=== PATIENT | female | born 1960 | race Caucasian/White ===

== ENCOUNTER 2016-04-05 08:00 | Inpatient (IN) ==
[2016-04-05] MEDS ORDERED: LORazepam 1 MG TABLET PO PRN (12:19)
[2016-04-05] MEDS ORDERED: clonazePAM 0.5 MG TABLET PO PRN (12:20)
[2016-04-05] MEDS: PREGABALIN 75 MG CAPSULE PO SCH ×3 (12:49→20:31)
[2016-04-05 13:08] LABS: Basophils % 0.5 % (0.0-0.8); Eosinophils # 0.1 10*3/uL (0.0-0.87); Eosinophils % 1.2 % (0.00-10.9); Hematocrit 38.8 VOL% (35.7-47.0); Hemoglobin 12.1 GM/DL (12.0-16.0); Immature Granulocytes % 0.3 %; Immature Granulocytes Absolute 0.02 #; Lymphocytes # 2.4 10*3/uL (1.4-4.0); Lymphocytes % 31.6 % (21.3-54.2); Mean Corpuscular HGB Conc 31.2 GM/DL (32-36); Mean Corpuscular Hemoglobin 28 PG (27-34); Mean Corpuscular Volume 88.8 FL (87-102); Mean Platelet Volume 11.7 FL (9.6-12.0); Monocytes # 0.7 10*3/uL (0.11-0.8); Monocytes % 8.8 % (1.7-12.7); Neutrophils # 4.4 10*3/uL (1.4-7.4); Neutrophils % 57.6 % (38.7-73.9); Platelet Count 306 10*3/uL (130-400); Red Blood Count 4.37 10*6/uL (3.8-5.5); Red Cell Distribution Width 13.5 % (9.3-17.3); White Blood Count 7.6 10*3/uL (4.5-13.71)
[2016-04-05 13:46] LABS: Alanine Aminotransferase 60 U/L (13-56); Albumin 3.7 G/DL (3.4-5.0); Alkaline Phosphatase 60 U/L (45-117); Aspartate Amino Transferase 60 U/L (0-37); Bilirubin,Total < 0.39 MG/DL (0.2-1.0); Blood Urea Nitrogen 13 MG/DL (7-18); Calcium 8.5 MG/DL (8.5-10.1); Glucose 100 MG/DL (74-106); Osmolality,Calculated 289.6 MOS/KG (273-304); Potassium 4.2 MMOL/L (3.5-5.1); Sodium 146 MMOL/L (136-145); Total Protein 6.9 G/DL (6.4-8.3)
[2016-04-05] MEDS ORDERED: LORazepam 2 MG/1 ML VIAL IV ONE (14:00)
[2016-04-05 14:07] LABS: Apearance,Urine CLOUDY (Clear); Bacteria,Urine Occasional /HPF (Few); Bilirubin,Urine Negative (Negative); Blood, Urine Negative (Negative); Calcium Oxalate Crystals,Urine Few /HPF (Few); Glucose,Urine (UA) Negative (Negative); Ketones,Urine Negative (Negative); Mucus,Urine Many /LPF (Occasional); Nitrite,Urine Negative (Negative); Protein,Urine Negative; RBC,Urine 2 /HPF (0-4); Squamous Epithelial Cell,Urine Few /HPF (0-10); Urine Color Yellow (Yellow); Urine Specific Gravity 1.029 (1.001-1.035); Urine Urobilinogen < 2.0 EU/DL (0.2-1.0); WBC,Urine 2 /HPF (0-6)
--- NOTE | 2016-04-05 16:56 | Magnetic Resonance Report ---
Referring physician: Vanesa Kim Exam: MRI brain with and without contrast Date: April 05, 2016 Comparison: MRI brain September 28, 2015 and September 26, 2015, MRI brain July 19, 2009 Reason: Followup brain cancer The patient is an inpatient who was admitted on April 05, 2016. Technique: MRI of the brain was performed with and without the use of 15 cc of IV Dotarem contrast. Obtained precontrast images include sagittal T1, axial diffusion-weighted, axial FLAIR, axial T2, coronal T2, axial gradient and axial T1 sequences. Postcontrast sequences include axial and coronal T1 sequences. A 1.5 Archana magnet was used Findings: There is again encephalomalacia at the left parasagittal frontal lobe. This is likely related to surgical resection of the patient's reported brain tumor. FLAIR hyperintensity is seen along the margins of the encephalomalacia and has been stable since since at least July 19, 2009. In addition, no suspicious enhancement is seen in this region. No hydrocephalus or midline shift is present. There is no evidence of recent intracranial hemorrhage, abnormal mass effect or an acute infarction. Major vascular flow voids are visualized. There is artifact at the anterior aspects of both orbits, but they are unremarkable as visualized. The sella and brainstem are also unremarkable. The paranasal sinuses and mastoid air cells are clear. Impression: There is again encephalomalacia at the left parasagittal frontal lobe. Similar findings are seen on previous studies dating back to least July 19, 2009, and this is likely related to surgical resection of the patient's reported brain tumor. No suspicious enhancement is seen in this region, and there is no convincing evidence of residual/recurrent disease. However, continued followup is recommended since recurrence may have a subtle appearance. PROCEDURE INTERPRETED AT [facility] DEPARTMENT OF RADIOLOGY Final Report Signed by: Dr. Cary Guo
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
[2016-04-05] MEDS: MAGNESIUM OXIDE 400 MG TABLET PO SCH (20:31)
[2016-04-05] MEDS: PANTOPRAZOLE 40 MG TABLET PO SCH (20:31)
[2016-04-05] MEDS: METOPROLOL SUCCINATE XL 50 MG TABLET PO SCH (20:31)
[2016-04-05] MEDS: ASPIRIN EC 81 MG TABLET PO SCH (20:31)
[2016-04-05] MEDS: MELOXICAM 7.5 MG TABLET PO SCH (20:31)
[2016-04-05] MEDS: ESTRADIOL 1 MG TABLET PO SCH (20:32)
[2016-04-05] MEDS: CHOLECALCIFEROL 1,000 UNIT TABLET PO SCH (20:32)
[2016-04-05] MEDS ORDERED: FENOFIBRATE 145 MG TABLET PO SCH (21:00)
[2016-04-05] MEDS ORDERED: NARATRIPTAN HCL 1 MG PO PRN (23:31)
[2016-04-05] MEDS ORDERED: METOPROLOL SUCCINATE XL 25 MG TABLET PO SCH (23:45)
[2016-04-06 08:06] LABS: Basophils % 0.6 % (0.0-0.8); Eosinophils # 0.1 10*3/uL (0.0-0.87); Hematocrit 37.1 VOL% (35.7-47.0); Hemoglobin 11.9 GM/DL (12.0-16.0); Immature Granulocytes % 0.1 %; Immature Granulocytes Absolute 0.01 #; Lymphocytes # 3.4 10*3/uL (1.4-4.0); Lymphocytes % 50.1 % (21.3-54.2); Mean Corpuscular HGB Conc 32.1 GM/DL (32-36); Mean Corpuscular Hemoglobin 28 PG (27-34); Mean Corpuscular Volume 88.1 FL (87-102); Mean Platelet Volume 11.3 FL (9.6-12.0); Monocytes # 0.6 10*3/uL (0.11-0.8); Monocytes % 8.5 % (1.7-12.7); Neutrophils # 2.7 10*3/uL (1.4-7.4); Neutrophils % 39.7 % (38.7-73.9); Platelet Count 255 10*3/uL (130-400); Red Blood Count 4.21 10*6/uL (3.8-5.5); Red Cell Distribution Width 13.3 % (9.3-17.3); White Blood Count 6.7 10*3/uL (4.5-13.71)
[2016-04-06 08:32] LABS: Albumin 3.3 G/DL (3.4-5.0); Bilirubin,Total 1.1 MG/DL (0.2-1.0); Calcium 8.3 MG/DL (8.5-10.1); Magnesium 2.2 MG/DL (1.8-2.4); Osmolality,Calculated 287.6 MOS/KG (273-304); Potassium 4.3 MMOL/L (3.5-5.1); Total Protein 6.1 G/DL (6.4-8.3)
[2016-04-06] MEDS: PREGABALIN 75 MG CAPSULE PO SCH ×4 (08:49→21:17)
[2016-04-06] MEDS ORDERED: ASPIRIN EC 81 MG TABLET PO SCH (09:00)
[2016-04-06] MEDS ORDERED: MELOXICAM 7.5 MG TABLET PO SCH (09:00)
[2016-04-06] MEDS ORDERED: ONDANSETRON 4 MG/2 ML VIAL ONE (13:11)
[2016-04-06] MEDS ORDERED: ONDANSETRON 4 MG/2 ML VIAL IV PRN (13:24)
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
[2016-04-06] MEDS: MELOXICAM 7.5 MG TABLET PO SCH (21:16)
[2016-04-06] MEDS: CHOLECALCIFEROL 1,000 UNIT TABLET PO SCH (21:16)
[2016-04-06] MEDS: ESTRADIOL 1 MG TABLET PO SCH (21:16)
[2016-04-06] MEDS: MAGNESIUM OXIDE 400 MG TABLET PO SCH (21:17)
[2016-04-06] MEDS: PANTOPRAZOLE 40 MG TABLET PO SCH (21:17)
[2016-04-06] MEDS: METOPROLOL SUCCINATE XL 50 MG TABLET PO SCH (21:17)
[2016-04-06] MEDS: ASPIRIN EC 81 MG TABLET PO SCH (21:17)
[2016-04-07] MEDS: PREGABALIN 75 MG CAPSULE PO SCH (08:02)
[2016-04-07 08:37] VITALS: BP 98/59
== END 2016-04-07 12:21 | disposition home or self-care (01) | DRG 552 ==
LOC: N.5E → OBSVTOIN 11:02
PROVIDERS: ADMIT Internal Medicine; ATTEND Internal Medicine

== ENCOUNTER 2016-11-06 13:49 | Inpatient (IN) ==
[2016-11-06] MEDS ORDERED: AMERGE 2.5 MG PO PRN (15:24)
[2016-11-06] MEDS ORDERED: LORazepam 1 MG TABLET PO ONE (16:19)
[2016-11-06 16:25] LABS: Basophils # 0.1 10*3/uL (0.0-0.2); Basophils % 0.6 % (0.0-0.8); Eosinophils # 0.1 10*3/uL (0.0-0.87); Eosinophils % 1.1 % (0.00-10.9); Hematocrit 39.2 VOL% (35.7-47.0); Hemoglobin 13.3 GM/DL (12.0-16.0); Immature Granulocytes % 0.5 %; Immature Granulocytes Absolute 0.04 #; Lymphocytes # 2.4 10*3/uL (1.4-4.0); Lymphocytes % 28.4 % (21.3-54.2); Mean Corpuscular HGB Conc 33.9 GM/DL (32-36); Mean Corpuscular Hemoglobin 29 PG (27-34); Mean Corpuscular Volume 84.3 FL (87-102); Mean Platelet Volume 11.3 FL (9.6-12.0); Monocytes # 0.6 10*3/uL (0.11-0.8); Monocytes % 6.7 % (1.7-12.7); Neutrophils # 5.3 10*3/uL (1.4-7.4); Neutrophils % 62.7 % (38.7-73.9); Platelet Count 306 T/CUMM (130-400); Red Blood Count 4.65 MC/CUMM (3.8-5.5); Red Cell Distribution Width 13.2 % (9.3-17.3); White Blood Count 8.4 T/CUMM (4-12)
[2016-11-06] MEDS ORDERED: LORazepam 2 MG/1 ML VIAL IV ONE (16:40)
[2016-11-06] MEDS: PREGABALIN 75 MG CAPSULE PO SCH ×2 (16:49→22:29)
[2016-11-06 16:52] LABS: Alanine Aminotransferase 36 U/L (13-56); Albumin 3.4 G/DL (3.4-5.0); Alkaline Phosphatase 73 U/L (45-117); Aspartate Amino Transferase 32 U/L (0-37); Bilirubin,Total < 0.39 MG/DL (0.2-1.0); Blood Urea Nitrogen 8 MG/DL (7-18); Calcium 8.8 MG/DL (8.5-10.1); Glucose 105 MG/DL (74-106); Osmolality,Calculated 276.4 MOS/KG (273-304); Potassium 4.3 MMOL/L (3.5-5.1); Sodium 140 MMOL/L (136-145); Total Protein 6.7 G/DL (6.4-8.3)
--- NOTE | 2016-11-06 18:33 | Magnetic Resonance Report ---
MR head/brain w and wo con Indication: Dizziness. Headache. History of seizure. Comparison: MRI brain 04/05/2016. Technique: Using 1.5 Archana magnet, multisequence multiplanar MR imaging of the brain was performed prior to and following the administration of intravenous contrast. Findings: There is no evidence of restricted diffusion on axial diffusion-weighted sequence. Encephalomalacia involving the anterior frontal cortex of the left cerebral hemisphere as well as olfactory cortex of the left cerebral hemisphere appears stable when compared to the prior study. Mild generalized atrophy as well as additional bilateral periventricular regions of hyperintense T2 and FLAIR signal compatible with microvascular ischemia appear stable. Sagittal T1 sequence demonstrates no significant abnormality involving the pituitary gland or optic nerves. There is no evidence of acute intracranial hemorrhage or mass. Ventricles lie in the midline. Basal cisterns are patent. Arterial flow voids demonstrate no significant abnormalities. The posterior fossa and cerebellum demonstrate no significant abnormalities. The intraorbital contents, paranasal sinuses, mastoid air cells, calvarium, and soft tissues overlying the calvarium demonstrate no significant abnormalities. Imaged muscles of mastication are unremarkable. Impression: 1. Stable interval appearance of the brain. No evidence of acute intracranial pathology. 11/06/2016 6:04 PM PROCEDURE INTERPRETED AT [facility] DEPARTMENT OF RADIOLOGY Final Report Signed by: Dr. Tray Awan
[2016-11-06] MEDS ORDERED: clonazePAM 0.5 MG TABLET PO SCH (21:00)
[2016-11-06] MEDS ORDERED: LORazepam 1 MG TABLET PO SCH ×2 (21:00→21:24)
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
[2016-11-06] MEDS: KETOROLAC 15 MG/1 ML VIAL IV SCH (22:30)
[2016-11-07] MEDS: KETOROLAC 15 MG/1 ML VIAL IV SCH ×4 (03:38→21:08)
[2016-11-07 07:32] LABS: Risk Ratio 4.3
[2016-11-07 07:35] LABS: Apearance,Urine CLOUDY (Clear); Bacteria,Urine Few /HPF (Few); Bilirubin,Urine Negative (Negative); Blood, Urine Negative (Negative); Calcium Oxalate Crystals,Urine Many /HPF (Few); Glucose,Urine (UA) Negative (Negative); Ketones,Urine 5 mg/dL (Negative); Mucus,Urine Many /LPF (Occasional); Nitrite,Urine Negative (Negative); Protein,Urine 30 MG/DL; Squamous Epithelial Cell,Urine Few /HPF (0-10); Urine Color Yellow (Yellow); Urine Specific Gravity 1.031 (1.001-1.035); Urine Urobilinogen < 2.0 EU/DL (0.2-1.0); WBC,Urine 5 /HPF (0-6)
[2016-11-07] MEDS ORDERED: CHOLECALCIFEROL 1,000 UNIT TABLET PO SCH (09:00)
[2016-11-07] MEDS ORDERED: FENOFIBRATE 145 MG TABLET PO SCH (09:00)
[2016-11-07] MEDS: PROMETHAZINE 25 MG/1 ML VIAL IM PRN ×2 (09:40→21:09)
[2016-11-07] MEDS: MELOXICAM 7.5 MG TABLET PO SCH (09:40)
[2016-11-07] MEDS: ESTRADIOL 1 MG TABLET PO SCH (09:40)
[2016-11-07] MEDS: METOPROLOL SUCCINATE XL 50 MG TABLET PO SCH (09:41)
[2016-11-07] MEDS: MAGNESIUM OXIDE 400 MG TABLET PO SCH (09:41)
[2016-11-07] MEDS: ASPIRIN EC 81 MG TABLET PO SCH (09:41)
[2016-11-07] MEDS: PREGABALIN 75 MG CAPSULE PO SCH ×4 (09:41→21:09)
[2016-11-07] MEDS: PANTOPRAZOLE 40 MG TABLET PO SCH (09:41)
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
[2016-11-07] MEDS ORDERED: oxyCODONE IR 5 MG TABLET PO PRN (17:14)
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
[2016-11-08] MEDS: KETOROLAC 15 MG/1 ML VIAL IV SCH ×2 (03:45→10:01)
[2016-11-08 08:36] VITALS: BP 95/43
[2016-11-08] MEDS: PANTOPRAZOLE 40 MG TABLET PO SCH (09:52)
[2016-11-08] MEDS: PREGABALIN 75 MG CAPSULE PO SCH (09:52)
[2016-11-08] MEDS: MAGNESIUM OXIDE 400 MG TABLET PO SCH (09:52)
[2016-11-08] MEDS: ASPIRIN EC 81 MG TABLET PO SCH (09:52)
[2016-11-08] MEDS: METOPROLOL SUCCINATE XL 50 MG TABLET PO SCH (09:52)
[2016-11-08] MEDS: MELOXICAM 7.5 MG TABLET PO SCH (09:52)
[2016-11-08] MEDS: ESTRADIOL 1 MG TABLET PO SCH (09:52)
== END 2016-11-08 11:42 | disposition home or self-care (01) | DRG 93 ==
LOC: N.5E 14:00
PROVIDERS: ADMIT Internal Medicine; ATTEND Internal Medicine

== ENCOUNTER 2018-01-31 09:08 | Inpatient (IN) ==
[2018-01-31] MEDS ORDERED: ceFAZolin 1,000 MG VIAL ONE (11:28)
[2018-01-31] MEDS ORDERED: PANTOPRAZOLE 40 MG TABLET PO ONE (11:35)
[2018-01-31] MEDS ORDERED: LORazepam 1 MG TABLET PO ONE (11:35)
[2018-01-31] MEDS ORDERED: SCOPOLAMINE 1.5 MG PATCH TRANSDERM ONE (11:35)
[2018-01-31] MEDS: LACTATED RINGERS 1,000 ML IV SCH ×4 (11:45→23:37)
[2018-01-31 11:54] LABS: Basophils % 0.3 % (0.0-0.8); Eosinophils # 0.1 10*3/uL (0.0-0.87); Eosinophils % 0.5 % (0.00-10.9); Hematocrit 39.8 VOL% (35.7-47.0); Hemoglobin 12.7 GM/DL (12.0-16.0); Immature Granulocytes % 0.4 %; Immature Granulocytes Absolute 0.05 #; Lymphocytes # 2.7 10*3/uL (1.4-4.0); Lymphocytes % 22.2 % (21.3-54.2); Mean Corpuscular HGB Conc 31.9 GM/DL (32-36); Mean Corpuscular Hemoglobin 29 PG (27-34); Mean Corpuscular Volume 90.2 FL (87-102); Monocytes % 8.4 % (1.7-12.7); Neutrophils # 8.2 10*3/uL (1.4-7.4); Neutrophils % 68.2 % (38.7-73.9); Platelet Count 319 T/CUMM (130-400); Red Blood Count 4.41 MC/CUMM (3.8-5.5); Red Cell Distribution Width 13.7 % (9.3-17.3)
[2018-01-31] MEDS ORDERED: BUPIVACAINE MPF 0.25% /EPI 30 ML VIAL ONE (12:06)
[2018-01-31] MEDS ORDERED: LIDOCAINE 1%/EPI INJ 20 ML VIAL ONE (12:07)
[2018-01-31 12:11] LABS: Calcium 8.6 MG/DL (8.5-10.1); Osmolality,Calculated 271.7 MOS/KG (273-304); Potassium 4.4 MMOL/L (3.5-5.1)
[2018-01-31] MEDS ORDERED: LORazepam 1 MG TABLET PO PRN (12:57)
[2018-01-31] MEDS ORDERED: PROPOFOL 200 MG/20 ML VIAL IV ONE (13:19)
[2018-01-31] MEDS ORDERED: MIDAZOLAM 2 MG/2 ML VIAL ONE (13:19)
[2018-01-31] MEDS ORDERED: fentaNYL 100 MCG/2 ML VIAL ONE (13:20)
[2018-01-31] MEDS ORDERED: PROPOFOL 500 MG/50 ML BOTTLE IV ONE (13:20)
[2018-01-31] MEDS ORDERED: HYDROmorphone 2 MG/1 ML VIAL IV PRN (13:23)
[2018-01-31] MEDS ORDERED: ONDANSETRON 4 MG/2 ML VIAL IV PRN (13:23)
[2018-01-31] MEDS: ONDANSETRON 4 MG/2 ML VIAL IV PRN ×2 (15:12→20:13)
[2018-01-31] MEDS: PREGABALIN 100 MG CAPSULE PO SCH ×2 (15:13→20:09)
[2018-01-31] MEDS ORDERED: INFLUENZA VIRUS VACCINE 0.5 ML SYRINGE IM ONE (15:28)
[2018-01-31 16:22] LABS: Apearance,Urine CLEAR (Clear); Bacteria,Urine Occasional /HPF (Few); Bilirubin,Urine Negative (Negative); Blood, Urine Negative (Negative); Glucose,Urine (UA) Negative (Negative); Ketones,Urine Negative (Negative); Nitrite,Urine Negative (Negative); Protein,Urine Negative; Squamous Epithelial Cell,Urine Occasional /HPF (0-10); Urine Color Straw (Yellow); Urine Specific Gravity 1.003 (1.001-1.035); Urine Urobilinogen < 2.0 EU/DL (0.2-1.0); WBC,Urine 3 /HPF (0-6)
[2018-01-31] MEDS: CEFTAROLINE 600 MG in SODIUM CHLORIDE 0.9% 100 ML IV SCH (17:25)
[2018-01-31] MEDS: MORPHINE 4 MG/1 ML VIAL IV PRN (20:09)
[2018-02-01] MEDS: CEFTAROLINE 600 MG in SODIUM CHLORIDE 0.9% 100 ML IV SCH ×2 (04:42→16:27)
[2018-02-01] MEDS: MORPHINE 4 MG/1 ML VIAL IV PRN ×3 (04:44→20:14)
[2018-02-01] MEDS: ONDANSETRON 4 MG/2 ML VIAL IV PRN ×4 (04:44→20:13)
[2018-02-01 05:39] LABS: Basophils % 0.4 % (0.0-0.8); Eosinophils # 0.1 10*3/uL (0.0-0.87); Eosinophils % 0.7 % (0.00-10.9); Hematocrit 35.7 VOL% (35.7-47.0); Immature Granulocytes % 0.4 %; Immature Granulocytes Absolute 0.04 #; Lymphocytes % 26.7 % (21.3-54.2); Mean Corpuscular HGB Conc 30.8 GM/DL (32-36); Mean Corpuscular Hemoglobin 28 PG (27-34); Mean Corpuscular Volume 91.5 FL (87-102); Mean Platelet Volume 10.7 FL (9.6-12.0); Monocytes % 8.8 % (1.7-12.7); Neutrophils # 7.2 10*3/uL (1.4-7.4); Platelet Count 279 T/CUMM (130-400); White Blood Count 11.3 T/CUMM (4-12)
[2018-02-01 05:51] LABS: Calcium 7.9 MG/DL (8.5-10.1); Osmolality,Calculated 278.3 MOS/KG (273-304); Potassium 3.8 MMOL/L (3.5-5.1)
[2018-02-01] MEDS: LACTATED RINGERS 1,000 ML IV SCH ×3 (06:41→20:13)
[2018-02-01] MEDS ORDERED: PANTOPRAZOLE 40 MG TABLET PO SCH (09:00)
[2018-02-01] MEDS: PANTOPRAZOLE 40 MG TABLET PO SCH (09:24)
[2018-02-01] MEDS: ESTRADIOL 1 MG TABLET PO SCH (09:24)
[2018-02-01] MEDS: PREGABALIN 100 MG CAPSULE PO SCH ×3 (09:24→21:26)
[2018-02-01] MEDS: oxyCODONE IR 5 MG TABLET PO PRN ×2 (10:04→16:27)
[2018-02-01] MEDS: ENOXAPARIN 40 MG/0.4 ML SYRINGE SUBCUT SCH (11:03)
[2018-02-01] MEDS: clonazePAM 0.5 MG TABLET PO PRN (21:26)
[2018-02-02] MEDS: LACTATED RINGERS 1,000 ML IV SCH ×4 (00:47→20:02)
[2018-02-02] MEDS: CEFTAROLINE 600 MG in SODIUM CHLORIDE 0.9% 100 ML IV SCH ×2 (04:41→17:05)
[2018-02-02] MEDS: MORPHINE 4 MG/1 ML VIAL IV PRN ×3 (09:12→20:00)
[2018-02-02] MEDS: PREGABALIN 100 MG CAPSULE PO SCH ×3 (09:55→20:00)
[2018-02-02] MEDS: ENOXAPARIN 40 MG/0.4 ML SYRINGE SUBCUT SCH (09:55)
[2018-02-02] MEDS: ESTRADIOL 1 MG TABLET PO SCH (09:55)
[2018-02-02] MEDS: PANTOPRAZOLE 40 MG TABLET PO SCH (09:55)
[2018-02-02] MEDS: oxyCODONE IR 5 MG TABLET PO PRN (13:17)
[2018-02-03] MEDS: LACTATED RINGERS 1,000 ML IV SCH ×4 (00:05→16:43)
[2018-02-03] MEDS: CEFTAROLINE 600 MG in SODIUM CHLORIDE 0.9% 100 ML IV SCH (05:38)
[2018-02-03 05:41] LABS: Basophils % 0.4 % (0.0-0.8); Eosinophils # 0.1 10*3/uL (0.0-0.87); Eosinophils % 0.9 % (0.00-10.9); Hematocrit 36.1 VOL% (35.7-47.0); Hemoglobin 11.3 GM/DL (12.0-16.0); Immature Granulocytes % 0.1 %; Immature Granulocytes Absolute 0.01 #; Lymphocytes # 2.8 10*3/uL (1.4-4.0); Lymphocytes % 41.5 % (21.3-54.2); Mean Corpuscular HGB Conc 31.3 GM/DL (32-36); Mean Corpuscular Hemoglobin 29 PG (27-34); Mean Corpuscular Volume 90.9 FL (87-102); Mean Platelet Volume 11.1 FL (9.6-12.0); Monocytes # 0.6 10*3/uL (0.11-0.8); Monocytes % 8.8 % (1.7-12.7); Neutrophils # 3.2 10*3/uL (1.4-7.4); Neutrophils % 48.3 % (38.7-73.9); Platelet Count 203 T/CUMM (130-400); Red Blood Count 3.97 MC/CUMM (3.8-5.5); Red Cell Distribution Width 13.3 % (9.3-17.3); White Blood Count 6.7 T/CUMM (4-12)
[2018-02-03] MEDS: oxyCODONE IR 5 MG TABLET PO PRN (07:46)
[2018-02-03] MEDS: PANTOPRAZOLE 40 MG TABLET PO SCH (08:39)
[2018-02-03] MEDS: ENOXAPARIN 40 MG/0.4 ML SYRINGE SUBCUT SCH (08:39)
[2018-02-03] MEDS: ESTRADIOL 1 MG TABLET PO SCH (08:39)
[2018-02-03] MEDS: PREGABALIN 100 MG CAPSULE PO SCH ×3 (08:39→21:28)
[2018-02-03] MEDS ORDERED: fentaNYL 75 MCG/HR PATCH TRANSDERM SCH (09:00)
[2018-02-03] MEDS: MORPHINE 4 MG/1 ML VIAL IV PRN ×2 (09:49→21:29)
[2018-02-03] MEDS: ONDANSETRON 4 MG/2 ML VIAL IV PRN ×3 (09:49→21:29)
[2018-02-03] MEDS: CLINDAMYCIN INJ 600 MG in PREMIX 1 EACH IV SCH ×2 (15:13→23:19)
[2018-02-03] MEDS: clonazePAM 0.5 MG TABLET PO PRN (21:28)
[2018-02-04] MEDS: MORPHINE 4 MG/1 ML VIAL IV PRN ×2 (06:25→15:21)
[2018-02-04] MEDS: ONDANSETRON 4 MG/2 ML VIAL IV PRN ×2 (06:25→15:22)
[2018-02-04] MEDS: CLINDAMYCIN INJ 600 MG in PREMIX 1 EACH IV SCH ×3 (06:25→23:31)
[2018-02-04] MEDS: LACTATED RINGERS 1,000 ML IV SCH ×2 (07:16→16:20)
[2018-02-04] MEDS: PREGABALIN 100 MG CAPSULE PO SCH ×3 (09:04→21:07)
[2018-02-04] MEDS: PANTOPRAZOLE 40 MG TABLET PO SCH ×2 (09:04→21:07)
[2018-02-04] MEDS: ENOXAPARIN 40 MG/0.4 ML SYRINGE SUBCUT SCH (09:05)
[2018-02-04] MEDS: FLUCONAZOLE 200 MG TABLET PO SCH (09:05)
[2018-02-04] MEDS: ESTRADIOL 1 MG TABLET PO SCH (09:05)
[2018-02-04] MEDS: clonazePAM 0.5 MG TABLET PO PRN (21:06)
[2018-02-05] MEDS: LACTATED RINGERS 1,000 ML IV SCH ×2 (04:49→06:36)
[2018-02-05] MEDS: CLINDAMYCIN INJ 600 MG in PREMIX 1 EACH IV SCH ×2 (06:38→15:35)
[2018-02-05] MEDS: PANTOPRAZOLE 40 MG TABLET PO SCH (09:11)
[2018-02-05] MEDS: FLUCONAZOLE 200 MG TABLET PO SCH (09:11)
[2018-02-05] MEDS: ENOXAPARIN 40 MG/0.4 ML SYRINGE SUBCUT SCH (09:11)
[2018-02-05] MEDS: ESTRADIOL 1 MG TABLET PO SCH (09:12)
[2018-02-05] MEDS: PREGABALIN 100 MG CAPSULE PO SCH ×2 (09:26→15:35)
[2018-02-05] MEDS ORDERED: PROPOFOL 500 MG/50 ML BOTTLE IV ONE (13:00)
[2018-02-05] MEDS ORDERED: LIDOCAINE 100 MG/5 ML SYRINGE ONE (13:00)
[2018-02-05 16:45] VITALS: BP 95/64
== END 2018-02-05 18:15 | disposition home or self-care (01) | DRG 572 ==
LOC: N.CT 09:08 → N.SDSINP 11:00 → N.ICU 13:08 → N.SDSINP 13:14 → N.3E 14:27
PROVIDERS: ADMIT Surgery; ATTEND Surgery